=== PATIENT | female | born 1965 | race American Indian/Alaskan Native ===

== ENCOUNTER 2019-01-25 10:36 | Outpatient (CLI) | payer BC ==
--- NOTE | 2019-01-28 09:39 | Mammography Report ---
BILATERAL DIGITAL SCREENING MAMMOGRAM WITH CAD AND IMPLANT-DISPLACED VIEWS HISTORY: Z12.31 SCREENING TECHNIQUE: Routine digital mammographic imaging performed. This examination was interpreted with brennan calixto benefit of Computer-aided Detection analysis. COMPARISON: None. FINDINGS: Breast Density: Heterogeneously dense breast parenchymal pattern which somewhat lessens the sensitivi ty of the evaluation. Digital standard and implant-displaced CC and MLO views demonstrate no mammographic evidence of malig lashaun. Bilateral subpectoral implants are in place.. No mass, architectural distortion or suspicio us calcifications. IMPRESSION: No mammographic evidence of malignancy. If the clinical examination remains stable, recommend bilate ral mammogram in approximately one year. BIRADS 1: Negative. FURTHER INFORMATION: According to the [employer], yearly mammograms are recommend ed starting at age 40 and continuing as long as a woman is in good health. Clinical Breast Exams shou ld be part of a periodic health exam-about every 3 years for women in their 20s and 30s and every yea r for women 40 and over. Breast self exam is an option for women starting in their 20s. Any breast ch mike noted on a breast self exam should be reported promptly to the patient's healthcare provider. Br east MRI is recommended for women with an approximately 20-25% or greater lifetime risk of breast can cer, including women with a strong family history of breast or ovarian cancer and women who have been treated for Hodgkin's disease. A negative Mammography report should not discourage follow up or biopsy of a clinically significant f inding and/or abnormality. Dense breast tissue may obscure small neoplasms. The patient will be entered into a reminder system with a target due date for the next screening mamm ogram. Signer Name: Juan Lyons MD Signed: 01/28/2019 9:35 AM Workstation Name: [id number]
== END 2019-01-25 10:37 | disposition home or self-care (01) ==
LOC: MAMMO 10:36
PROVIDERS: ATTEND Internal Medicine
DX: Z12.31 Encounter for screening mammogram for malignant neoplasm of breast (principal); J45.909 Unspecified asthma, uncomplicated; E03.9 Hypothyroidism, unspecified
CPT/HCPCS: 77067